=== PATIENT | female | born 1995 | race Caucasian/White ===

== ENCOUNTER 2022-11-18 11:17 | Emergency (ER) | payer BC, OTHER ==
--- OUTSIDE RECORDS SUMMARY | 2022-11-18 11:21 | XMS REPORT | Continuity of Care Document ---
:1995 Author Organization [facility] t Address [address] [place] [address] [place] [address] Care Team Providers Name Role Phone AGUSTIN KEE Attending Clinician Unavailable Agustin Kee MD Attending Clinician [phone] KAMI Attending Clinician Unavailable SEVEN CONTRERAS Attending Clinician Unavailable TAMMIE CHILD Attending Clinician Unavailable URSULA MEDINA Attending Clinician Unavailable RABIA CONNOLLY Attending Clinician Unavailable ANNMARIE PARDO Attending Clinician Unavailable KAMI Admitting Clinician Unavailable Payers Payer Name Policy Type Policy Number Effective Date Expiration Date S ilia [facility] OS [id number] 2022 00:00:00 POS/PPO/EPO Problems This patient has no known problems. Allergies, Adverse Reactions, Alerts Allergy Allergy Status Severity Reaction(s) Onset Inactive Treating Comm ents Source Name Type Date Date Clinician NO KNOWN Allergy Active KACY Sneed [facility] Social History Social Habit Start Date Stop Date Quantity Comments Source Tobacco use and 2022-10-27 2022-10-27 Smokeless [address] [facility] exposure 00:[facility]00 00:00:00 non-user [facility] Alcohol intake 2022-10-27 2022-10-27 Current drinker KACY Avendaño 00:00:00 00:00:00 of alcohol [facility] Center ([facility]) Alcohol Comment 2022-08-19 2022-08-19 1 per month KACY Cervantes 00:00:00 00:00:00 [facility] Center Sex Assigned At [address] [facility] [address] [facility] 00:00:00 00:[facility]:00 [facility] Smoking Status Start Date Stop Date Source Never smoked tobacco [facility] Medications Ordered Filled Start Stop Current Ordering Indication Dosage Frequency Signature Comments Components Source Medication Medication Date Date Medication? Clinician (SIG) Name Name norelgestro 2022- No Xulane [address] [facility] min-ethinyl 4-05 04-05 mcg-35 [facility] estradiol 12:22: 00:00 mcg/24 hr Me dical (Xulane) 49 :00 transderma Cente r 150-35 l patch mcg/24 hr Apply 1 patch patch every week by transderma l route. benzonatate Yes benzonatat [facility] (TESSALON) 4-05 e 200 mg [facility] 200 MG 11:41: capsule Medical capsule 35 Take 1 [place] capsule 3 times a day by oral route for 20 days. medroxyPROG 2022- No 10mg QD Take [address] [facility] ESTERone 30 02-09 tablet (10 [facility] s (PROVERA) 00:00: 23:59 mg total) Me dical 10 MG 00 :00 by mouth Center tablet daily for 10 days Take cycle day 18 to 27. escitalopra Yes Secondary Take by [facility] m oxalate 1-11 amenorrhea mouth. Dorota kes (LEXAPRO) 00:00: Medical 10 MG 00 Center tablet Rexulti 1 2022- No Secondary 1mg QD Take [address] mg Tab 08-03-05 amenorrhea by mouth Dorota kes tablet 00:00: 00:00 daily. Medical 00 :00 Center albuterol Yes Secondary 2{puff} [address] HFA 1-09 amenorrhea [facility] (VENTOLIN 00:00: Medical HFA) 90 00 [place] mcg/actuati on inhaler ALPRAZolam 2021-07 Yes Secondary Take by [facility] (XANAX) 0.5 1-16 amenorrhea mouth. [facility] MG tablet 00:00: Medical 00 Center Vital Signs Vital Name Observation Time Observation Value Comments Source HEIGHT 2022-10-27 11:39:00 167.6 cm WEIGHT 2022-10-27 11:39:00 74.844 kg HEIGHT 2022-10-27 11:39:00 167.6 cm WEIGHT 2022-10-27 11:39:00 74.844 kg Systolic blood 2022-10-27 11:39:00 121 mm[Hg] [facility] Diastolic blood 2022-10-27 11:39:00 81 mm[Hg] [facility] Heart rate 2022-10-27 11:39:00 88 /min [facility] Body temperature 2022-10-27 11:39:00 36.72 Karishma [facility] Body height 2022-10-27 11:39:00 167.6 cm [facility] Body weight 2022-10-27 11:39:00 74.844 kg [facility] BMI 2022-10-27 11:39:00 26.64 kg/m2 [facility] Procedures Procedure Date / Time Performed Performing Clinician Sourc e CBC W/PLT COUNT & AUTO 2022-08-19 12:12:[address] [facility] COMPREHENSIVE METABOLIC 2022-08-19 12:12:00 Agustin Kee [facility] TSH/FREE T4 IF INDICATED 2022-08-19 12:12:00 Agustin Kee [facility] PROLACTIN 2022-08-19 12:12:00 Agustin Kee [facility] HEMOGLOBIN A1C 2022-08-19 12:12:00 Agustin Kee [facility] FSH/LH 2022-08-19 12:12:00 Agustin Kee [facility] ANTI-MULLERIAN HORMONE 2022-08-19 12:12:00 Agustin Kee [facility] CERVICAL CANCER B 2022-08-19 12:04:00 Agustin Kee [facility] Raya carlos SCREENING ONLY- NO STD'S [facility] IGP, RFX APTIMA HPV ASCU 2022-08-19 12:04:00 Agustin Kee [facility] Plan of Care Planned Activity Planned Date Details Comments Source Future Scheduled 2023-10-[address] [facility] Test 00:00:00 Counseling and Medical Cente r Screening (12+) [code = Tobacco Cessation Counseling and Screening (12+)] Future Scheduled 2023-03-[address] [facility] Test 00:00:00 (Season Ended) [code Medical Center = INFLUENZA VACCINE (Season Ended)] Future Scheduled [address] [facility] [facility] Test 00:00:00 malignant neoplasm of Medica l Center cervix (procedure) [code = 298686432] Future Scheduled 2016 DTAP/TDAP/TD VACCINES [facility] Test 00:00:00 (1 - Tdap) [code = Medical C enter DTAP/TDAP/TD VACCINES (1 - Tdap)] Future Scheduled 2015 HEPATITIS C SCREENING [facility] Test 00:00:00 [code = HEPATITIS C Medical Center SCREENING] Future Scheduled 1997 COVID-19 VACCINE (#1) [facility] Test 00:00:00 [code = COVID-[address] VACCINE (#1)] Encounters Start End Encounter Admission Attending Care Care Encounter Source Date/Time Date/Time Type Type Clinicians Facility Department ID 2023-08-25 2023-08-25 Outpatient [facility] [id number] [facility] 00[facility]00 [facility] 2022-10-27 2022-10-[address] [facility] [id number] 11:30:00 12:26:34 Visit [facility] 2022-10-27 2022-10-27 Outpatient [facility] [id number] 11[facility]28:16 12:26:34 [facility] 2022-08-23 2022-08-[address] [facility] [id number] 00:[facility]00 00:00:00 Only [facility] 2022-08-23 2022-08-[address] [facility] [id number] 00:[facility] 00[facility]00 [facility] 2022-08-19 2022-08-19 Outpatient SHAYNA KEE [facility] [id number] 11:04:10 12:09:43 [facility] 2022-08-19 2022-08-[address] [facility] [id number] 11:00:00 12:09:43 Visit [facility] 2021-11-17 2021-11-17 Outpatient SWETHA KNOX [facility] [id number] [place] 06:16:00 06:16:00 [facility] [id number] [facility] 2019-01-05 2019-01-05 Outpatient SHAYNA CONTRERAS [facility] [id number] [place] 10:06:00 10:06:00 [id number] [facility] 2017-12-16 2017-12-16 Outpatient SHAYNA CONTRERAS [facility] [id number] [place] 10:14:00 10:14:00 [facility]VEN -[id number] [facility] 2017-11-03 2017-11-03 Emergency ER TAMMIE CHILD [facility] [id number] [place] 15:26:00 17:13:00 -[id number] [facility] hospital 2017-11-01 2017-11-01 Outpatient SHAYNA MEDINA [facility] [id number] [place] 08:40:00 08:40:00 URSULA -[id number] [facility] 2017-06-08 2017-06-08 Outpatient SHAYNA CONNOLLY [facility] [id number] [place] 17:03:00 17:03:00 RABIA -[id number] [facility] 2017-04-14 2017-04-14 Outpatient ANNMARIE TONY [facility] [id number] [place] 11:28:00 11:28:00 -[id number] [facility] hospital 2017-03-10 2017-03-10 Outpatient ANNMARIE TONY [facility] [id number] [place] 13:55:00 13:55:00 -[id number] [facility] Results Test Description Test Time Test Comments Results Result Comments Source Comprehensive metabolic panel 2022-08-26 12:11:00 Test Item Value Reference Range Interpretation Comme nts Glucose, Serum (test code 74 mg/dL 70-99 = 20101124) BUN (test code = 9408071) 11 mg/dL 6-20 Creatinine, Serum (test 0.53 mg/dL 0.57-1.00 L code = 7943501) EGFR (test code = 132 mL/min/1.73 >=59 [id number]) BUN/Creatinine Ratio (test 21 9-23 code = 8179749) Sodium, Serum (test code = 140 mmol/L 134-444 5373783) Potassium, Serum (test 4.0 mmol/L 3.5-5.2 code = 20101210) Chloride, Serum (test code 102 mmol/L 96-106 = 20101212) Carbon Dioxide, Total 23 mmol/L 20-29 (test code = ) Calcium, Serum (test code 9.7 mg/dL 8.7-10.2 = 20101122) Protein, Total, Serum 7.5 g/dL 6.0-8.5 (test code = 20101129) Albumin, Serum (test code 4.8 g/dL 3.9-5.0 = 20101130) Globulin, Total (test code 2.7 g/dL 1.5-4.5 = ) A/G Ratio (test code = 1.8 1.2-2.2 ) Bilirubin, Total (test 0.4 mg/dL 0.0-1.2 code = 20101201) Alkaline Phosphatase, S 54 See_Comment [Au tomated message] (test code = 6768-6) The sys tem which generated this result transmitted ref erence range: 44 - 121 IU/L. The reference r per was not used to int erpret this result as normal/abnormal . AST (SGOT) (test code = 36 See_Comment [Au tomated message] 20101205) The system [employer] generated this result transmitted ref erence range: 0 - 40 I U/L. The reference range was not used to interpr et this result as normal/abnormal . ALT (SGPT) (test code = 52 See_Comment H [Au tomated message] ) The system ic h generated this result transmitted ref erence range: 0 - 32 I U/L. The reference range was not used to interpr et this result as normal/abnormal . AXEL (test code = AXEL) Performed at: [facility] [id number] Director: Berlin Meng MD, Phone: [phone] Lab Interpretation (test Abnormal code = 61513-7) [facility] Center[facility] [id number] 12:11:00 Test Item Value Reference Range Interpretation Comments Hemoglobin A1c 5.2 % 4.8-5.6 Prediabetes: (test code = 5.7 - 6.4 4548-4) Diabetes: >6.4 Glycemic contro l for adults with diabetes: <7.0 AXEL (test code = Performed at: AXEL) [facility] [address] [id number] Director: Berlin Meng MD, Phone: [phone] [facility] W/ PLT COUNT AUTO [id number] 12:11:00 Test Item Value Reference Range Interpretation Comments WBC (test code = 7.2 See_Comment [Automated ) message] The system which generated this result transmit gurdeep reference range : 3.4 - 10.8 x10E3/uL. The reference range was not used to interpret this result as normal/abnormal . RBC (test code = 4.44 See_Comment [Automated 208-8) message] The system which generated this result transmit gurdeep reference range : 3.77 - 5.28 x10E6/uL. The reference range was not used to interpret this result as normal/abnormal . Hemoglobin (test 12.9 g/dL 11.1-15.9 code = ) Hematocrit (test 39.3 % 34.0-46.6 code = ) MCV (test code = 89 fL 79-97 ) MCH (test code = 29.1 pg 26.6-33.0 ) MCHC (test code = 32.8 g/dL 31.5-35.7 ) RDW (test code = 12.7 % 11.7-15.4 ) Platelets (test 274 See_Comment [Automated code = ) message] The system which generated this result transmit gurdeep reference range : 150 - 450 x10E3/uL. The reference range was not used to interpret this result as normal/abnormal . % Neutros (test 59 % Not Estab. code = ) % Lymphs (test 33 % Not Estab. code = ) % Monos (test code 5 % Not Estab. = ) % Eos (test code = 2 % Not Estab. ) % Baso (test code 1 % Not Estab. = ) # Neutros (test 4.3 See_Comment [Automated code = ) message] The system which generated this result transmit gurdeep reference range : 1.4 - 7.0 x10E3/uL. The reference range was not used to interpret this result as normal/abnormal . # Lymphs (test 2.4 See_Comment [Automated code = ) message] The system which generated this result transmit gurdeep reference range : 0.7 - 3.1 x10E3/uL. The reference range was not used to interpret this result as normal/abnormal . # Monos (test code 0.4 See_Comment [Automat ed = ) message] The system which generated this result transmit gurdeep reference range : 0.1 - 0.9 x10E3/uL. The reference range was not used to interpret this result as normal/abnormal . # Eos (test code = 0.1 See_Comment [Automat ed ) message] The system which generated this result transmit gurdeep reference range : 0.0 - 0.4 x10E3/uL. The reference range was not used to interpret this result as normal/abnormal . Baso (Absolute) 0.1 See_Comment [Automated (test code = message] The ) system which generated this result transmit gurdeep reference range : 0.0 - 0.2 x10E3/uL. The reference range was not used to interpret this result as normal/abnormal . % Immature Grans 0 % Not Estab. (test code = ) # Immature Grans 0.0 See_Comment [Automated (test code = message] The ) system which generated this result transmit gurdeep reference range : 0.0 - 0.1 x10E3/uL. The reference range was not used to interpret this result as normal/abnormal . AXEL (test code = Performed at: AXEL) [facility] [id number] Director: Berlin Meng MD, Phone: [phone] [facility] CenterProlactin2023-02-02 12:11:00 Test Item Value Reference Range Interpretation Comments Prolactin (test code = 18.0 ng/mL 4.8-23.3 ) AXEL (test code = AXEL) Performed at: - [facility] [address] [id number] Director: Berlin Meng MD, Phone: [phone] [facility] [id number] 12:11:00 Test Item Value Reference Range Interpretation Comments LH (test code 16.2 mIU/mL Adult Female: = ) Follicular phas e 2.4 - 12.6 Ovulation phase 14.0 - 95.6 Lut eal phase 1.0 - 11. 4 Postmenopausal 7.7 - 58.5 FSH (test 5.8 mIU/mL Adult Female: code = Follicular phas e 3.5 - 4626598) 12.5 Ovulation phase 4.7 - 21.5 Lute al phase 1.7 - 7.7 Postmenopausal 25.8 - 134.8 AXEL (test Performed at: - code = AXEL) [facility] [id number] Director: Berlin Meng MD, Phone: [phone] [facility] CenterTSH/Free T4 If [id number] 12:11:00 Test Item Value Reference Range Interpretation Comments TSH (test code 1.000 See_Comment [Automated m essage] = ) The system [employer] h generated this result transmit gurdeep reference range : 0.450 - 4.50 uI U/mL. The reference r per was not used to interpret this result as normal/abnormal . AXEL (test code Performed at: - = AXEL) [facility] [id number] Director: Berlin Meng MD, Phone: [phone] [facility] CenterANTI-MULLERIAN HORMONE (AMH)2022-08-26 12:11:00 Test Item Value Reference Interpretation Comments Range Anti-Mullerian 20.1 ng/mL H For assays em ploying Hormone (AMH) antibodies, th e possibility (test code = exists forinter ference by ) heterophile ant ibodies in the samples.1 1 .Carina Driver Interferences i n Immunoassays - still a threat. Clin. C hem. 2000; 46: 4006-8410. This test was developed and i ts performance characteristics determined by [facility]. It has not been cleared or appr ovedby the Food and Drug Administration. Reference Range:Females 2 0 - 25y: 1.23 - 11.51Median 4 .70AMH concentrations of >= 1.06 ng/mL is correl ated with abetter respons e to ovarian stimulation, pr oduced moreretrievable oocytes and higher odds of live accordingto Ruiz le al. Fertility and S terility. 2010:94:2824-28 27. The current AMH roman t method correlates with the study method with a s donnell of 0.94.Females at risk of ovarian hyperst imulation syndrome orpoly cystic ovarian syndrom e (PCOS) may exhibit elevate dserum AMH concentrations. AMH levels from PCOS patie ntsmay be 2 to 5 fold highe r than age-appropriate referenceinterv al values.Granulos a cell tumors of the ovary ma y secrete AMH alongwith other tumor markers. Elevat ed AMH is not specific formal ignancy, and the assay shoul d not be used exclusively tod iagnose or exclude an AMH- secreting ovarian tumor. AXEL (test code = Performed at: AXEL) 02 - [facility] [address] [place], [place] [id number] Director: Yaya More MD, Phone: [phone] Lab Abnormal Interpretation (test code = 10535-1) [facility] CenterCERV[facility] CANCER B SCREENING ONLY- NO [id number] 12:09:00 Test Item Value Reference Range Interpretation Comments Age Gdln ACOG 21-29 Testing (test code = 1803725) AXEL (test code = Specimen Comment: No. of AXEL) containers..01 ThinPrep VialPerformed at: 01 - [facility] [address] [id number] Director: Berlin Meng MD, Phone: [phone] [facility] CenterIGP, rfx Aptima HPV [id number] 12:09:00 Test Item Value Reference Interpretation Comments Range DIAGNOSIS: Comment NEGATIVE FOR (test code = INTRAEPITHELIAL LESION ) OR MALIGNANCY. Specimen Comment Satisfactory fo r adequacy: (test evaluation. code = ) Performed by: Comment Arianne Gonzales Has hmi, (test code = Cytotechnologis t ) (ASCP) . (test code = . 20111124) Note: (test Comment The Pap smear i s a code = ) screening te st designed to aid in the detection ofpremalignant and malignant condi tions of the uterine cervix. It is not adiag nostic procedure and s hould not be used as the sole means of detectingcervic al cancer. Both false-positive and false-negative reports do occur. Test Comment This liquid bas ed Methodology: ThinPrep(R) pap test (test code = was screened wi ) theuse of an im age guided system. . (test code = Comment The HPV DNA r eflex ) criteria were n ot met with this speci men resulttherefore , no HPV testing was performed. AXEL (test code Specimen Comment: = AXEL) No. of containers..01 ThinPrep VialPerformed at: - [facility] [address] [id number] Director: Berlin Meng MD, Phone: [phone] at: - [facility] [id number] Director: Berlin Meng MD, Phone: [phone] [facility]
[2022-11-18 12:26] LABS: Absolute Lymphocytes (CBC) 2.4 K/uL (0.7-4.9); Hematocrit 38.7 % (36.0-45.0); MCV 85.6 fL (80-100); MPV 7.7 fL (7.6-11.3); RBC Red Blood Cell Count 4.53 M/uL (3.86-4.86)
[2022-11-18] MEDS ORDERED: ONDANSETRON 4 MG/2 ML VIAL ONE (12:27)
[2022-11-18] MEDS ORDERED: Ringers Lactate 1,000 ML IV ONE (12:27)
[2022-11-18] MEDS ORDERED: MECLIZINE HCL 12.5 MG TAB ONE (12:27)
[2022-11-18 12:30] LABS: Protime INR 0.87
[2022-11-18 12:51] LABS: Barbiturates NEGATIVE (NEGATIVE); Benzodiazepines NEGATIVE (NEGATIVE); Cocaine NEGATIVE (NEGATIVE); METHAMPHETAM NEGATIVE (NEGATIVE); Methadone NEGATIVE (NEGATIVE); Opiates NEGATIVE (NEGATIVE); Phencyclidine NEGATIVE (NEGATIVE); THC Cannibis POSITIVE (NEGATIVE)
[2022-11-18 12:54] LABS: ALT/SGPT 26 U/L (13-56); AST/SGOT 14 U/L (15-37); Albumin 4.1 g/dL (3.4-5.0); Alkaline Phosphatase 59 U/L (45-117); BUN Blood Urea Nitrogen 9 mg/dL (7-18); Bicarbonate 28 mEq/L (21-32); Bilirubin Total 0.2 mg/dL (0.2-1.0); Glomerular Filtration Rate 126 ml/min (=/>90); Glucose Level 90 mg/dL (74-106); Potassium 3.6 mEq/L (3.5-5.1); Sodium Level 137 mEq/L (136-145)
[2022-11-18 13:00] LABS: Bilirubin Direct < 0.1 mg/dL (0-0.2); Troponin High Sensitivity < 3.0 pg/mL (<58.9)
--- NOTE | 2022-11-18 13:12 | RAD REPORT ---
EXAM DESCRIPTION: CT - Head Brain Wo Cont - 11/18/2022 12:45 pm CLINICAL HISTORY: DIZZINESS COMPARISON: No comparisons TECHNIQUE: Noncontrast head CT images ad were obtained without IV contrast. Multiplanar reformats we re generated and reviewed. All CT scans are performed using dose optimization technique as appropriate and may include automated exposure control or mA/KV adjustment according to patient size. FINDINGS: No intracranial hemorrhage, mass, or edema. Midline structures are unremarkable. Normal ventricular caliber for age. Washburn-white matter differentiation is preserved, without evidence of acute infarct. No abnormal extra- axial fluid collections. Mastoid air cells and visualized portions of the paranasal sinuses are clear. No acute bony findings. IMPRESSION: No evidence of an acute intracranial process.
[2022-11-18] MEDS ORDERED: DIAZEPAM 10 MG/2 ML INJ SYRINGE ONE (14:14)
--- NOTE | 2022-11-18 15:30 | EDPHYS ---
Physician Documentation [facility] Name: Makeda Solis Age: 27 yrs Sex: Female : 1995 Arrival Date: 11/18/2022 Time: 11:17 Bed 11 Private MD: ED Physician Herbie Flores HPI: 11/18 11:21 This 27 yrs old Unknown Female presents to ER via Ambulatory with complaints of m Dizziness. 11:21 The patient presents with dizziness. Onset: The symptoms/episode began/occurred jmm acutely, 3 day(s) ago. Modifying factors: The symptoms are alleviated by closing eyes, holding head still, the symptoms are aggravated by movement of head, standing up, changing position. Associated signs and symptoms: Pertinent positives: vomiting. The patient has not experienced similar symptoms in the past. Historical: - Allergies: 11:24 No Known Allergies; ll1 - PMHx: 11:24 Anxiety; ll1 - PSHx: 11:24 wisdom teeth; ll1 - Immunization history:: Adult Immunizations up to date. - Social history:: Smoking status: Patient denies any tobacco usage or history of. ROS: 11:21 Constitutional: Negative for fever, chills, and weight loss, Cardiovascular: Negative jm for chest pain, palpitations, and edema, Respiratory: Negative for shortness of breath, cough, wheezing, and pleuritic chest pain. 11:21 Abdomen/GI: Positive for nausea and vomiting. 11:21 Neuro: Positive for dizziness. 11:21 All other systems are negative. Exam: 11:58 ECG was reviewed by the Attending Physician. jm 17:12 Constitutional: This is a well developed, well nourished patient who is awake, alert, jmm and in no acute distress. Head/Face: atraumatic. ENT: Moist Mucus Membranes Neck: Trachea midline, Supple Chest/axilla: Normal chest wall appearance and motion. Cardiovascular: Regular rate and rhythm. No edema appreciated Respiratory: Normal respirations, no respiratory distress appreciated 17:12 Back: Normal ROM Skin: General appearance color normal MS/ Extremity: Moves all jmm extremities, no obvious deformities appreciated, no edema noted to the lower extremities Neuro: Awake and alert Psych: Behavior is normal, Mood is normal, Patient is cooperative and pleasant 17:12 Eyes: Nystagmus: nystagmus with fast component noted, Horizontal nystagmus noted bilaterally. Vital Signs: 11:23 BP 123 / 89; Pulse 64; Resp 16; Temp 98.2; Pulse Ox 100% ; Weight 72.57 kg; Height 5 ll1 ft. 5 in. ; Pain 6/10; 12:15 BP 116 / 71; Pulse 82; Resp 16; Pulse Ox 100% on R/A; db 14:17 BP 110 / 73; Pulse 66; Resp 18; Pulse Ox 100% on R/A; db 11:23 Body Mass Index 26.63 (72.57 kg, 165.1 cm) ll1 11:23 Pain Scale: Adult ll1 MDM: 11:34 Patient medically screened. [facility] 17:12 Differential diagnosis: cardiac arrhythmia, CVA, idiopathic dizziness, near-syncope, jmm sepsis, syncope, TIA, vertigo. Data reviewed: vital signs, nurses notes, lab test result(s). I considered the following discharge prescriptions or medication management in the emergency department Medications were administered in the Emergency Department. See MAR. Test considered but Not performed: MRI: HPI and CT negative. Most likely peripheral vertigo.. Counseling: I had a detailed discussion with the patient and/or guardian regarding: the historical points, exam findings, and any diagnostic results supporting the discharge/admit diagnosis, lab results, radiology results, the need for outpatient follow up, to return to the emergency department if symptoms worsen or persist or if there are any questions or concerns that arise at home. ED course: Patient states feeling much better. Patient advised to follow-up with ENT for reevaluation otherwise given strict return precautions. Patient understood and agrees plan of care.. 11/18 11:34 Order name: Acetaminophen; Complete Time: 13:02 [facility] 11/18 11:34 Order name: Basic Metabolic Panel; Complete Time: 13:02 [facility] 11/18 11:34 Order name: CBC with Diff; Complete Time: 12:29 [facility] 11/18 11:34 Order name: ETOH Level; Complete Time: 12:40 [facility] 11/18 11:34 Order name: Hepatic Function; Complete Time: 13:02 [facility] 11/18 11:34 Order name: PT-INR; Complete Time: 12:33 [facility] 11/18 11:34 Order name: Ptt, Activated; Complete Time: 12:33 [facility] 11/18 11:34 Order name: Salicylate; Complete Time: 13:02 [facility] 11/18 11:34 Order name: Urine Drug Screen; Complete Time: 12:51 [facility] 11/18 11:34 Order name: Troponin High Sensitivity; Complete Time: 13:02 [facility] 11/18 12:37 Order name: CT Head Brain wo Cont; Complete Time: 13:19 [facility] 11/18 11:34 Order name: EKG; Complete Time: 11:35 [facility] 11/18 11:34 Order name: EKG - Nurse/Tech; Complete Time: 12:00 [facility] 11/18 11:34 Order name: IV Saline Lock; Complete Time: 12:15 [facility] 11/18 11:34 Order name: Labs collected and sent; Complete Time: 12:15 jm EC:58 Rate is 67 beats/min. Rhythm is regular. QRS [place] is Normal. [place] interval is normal. QRS jmm interval is normal. QT interval is normal. No Q waves. T waves are Normal. No ST changes noted. Reviewed by me. Administered Medications: 12:15 Drug: Meclizine PO 50 mg Route: PO; db 12:20 Drug: Lactated Ringers Solution IV 1000 ml Route: IV; Rate: 1000 bolus; Site: right db antecubital; 15:39 Follow up: IV Status: Completed infusion; IV Intake: 1000ml db 12:30 Drug: Ondansetron IVP 4 mg Route: IVP; Site: right antecubital; db 15:39 Follow up: Response: No adverse reaction db 14:14 Drug: Diazepam IVP 5 mg Route: IVP; Site: right antecubital; db 15:39 Follow up: Response: No adverse reaction db Disposition: 12:23 Co-signature as Attending Physician, Herbie Flores DO PA/SLITTING MACHINE OPERATOR's history reviewed, patient ms3 interviewed, and examined. HPI: 27-year-old female presents for 3 days of dizziness. Patient states she was off her anxiety medicines and recently restarted them. My personal exam of patient reveals: On exam patient is alert and oriented x4, no apparent distress, nontoxic-appearing. Heart rate and rhythm are regular without murmurs rubs or gallops. Lungs are clear to auscultation bilaterally. Abdomen is nontender to palpation with bowel sounds present. Skin is dry and without rashes. [id number] intact, ambulatory in the emergency department, sensation intact, full range of motion bilateral upper and lower extremities. I agree with assessment and care plan and confirm the diagnosis (es) above. Disposition Summary: 11/18/22 15:30 Discharge Ordered Location: Home [facility] Condition: Stable [facility] Diagnosis - Other peripheral vertigo [facility] Followup: [facility] - With: Dinah Dasilva MD - When: 2 - 3 days - Reason: Recheck today's complaints, Continuance of care, Re-evaluation by your physician Discharge Instructions: - Discharge Summary Sheet [facility] - Vertigo [facility] - How to Perform the Alcides Maneuver [facility] Forms: - Medication Reconciliation Form [facility] - Thank You Letter [facility] - Antibiotic Education [facility] - Prescription Opioid Use [facility] Prescriptions: - ondansetron 4 mg Oral Tablet,disintegrating - take 1 tablet by ORAL route every 4-6 hours As needed; 20 tablet; Refills: 0, [facility] Product Selection Permitted - Meclizine 25 mg Oral Tablet - take 1 tablet by ORAL route every 8 hours As needed; 30 tablet; Refills: 0, [facility] Product Selection Permitted - Valium 5 mg Oral Tablet - take 1 tablet by ORAL route every 8 hours As needed; 20 tablet; Refills: 0, [facility] Product Selection Permitted Signatures: Dispatcher [employer] EDChuck Barraza PA PA jmm Lewis, Lynsay, RN RN ll1 Herbie Flores DO DO ms3 Marivel Kim RN RN db Corrections: (The following items were deleted from the chart) 11:49 11:34 Suicide Screening ([place]) ordered. [facility]
--- NOTE | 2022-11-18 15:30 | ER ---
Nurse's Notes [facility] Name: Makeda Solis Age: 27 yrs Sex: Female : 1995 Arrival Date: 11/18/2022 Time: 11:17 Bed 11 Private MD: Diagnosis: Other peripheral vertigo Presentation: 11/18 11:23 Chief complaint: Patient states: THORNTON, N/V, THORNTON for 2-3 days. Missed her cymbalta dose 3 ll1 days in a row, feels anxious. Coronavirus screen: Vaccine status: Patient reports receiving the 2nd dose of the covid vaccine. Client denies travel out of the [place] in the last 14 days. At this time, the client does not indicate any symptoms associated with coronavirus-19. Ebola Screen: Patient denies travel to an Ebola-affected area in the 21 days before illness onset. Initial Sepsis Screen: Does the patient meet any 2 criteria? No. Patient's initial sepsis screen is negative. Does the patient have a suspected source of infection? No. Patient's initial sepsis screen is negative. Risk Assessment: Do you want to hurt yourself or someone else? Patient reports no desire to harm self or others. Onset of symptoms was November 16, 2022. 11:23 Method Of Arrival: Ambulatory ll1 11:23 Acuity: LEONCIO 3 ll1 Triage Assessment: 11:26 General: Appears uncomfortable, Behavior is calm, cooperative, appropriate for age. ll1 Pain: Denies pain. Neuro: Reports dizziness, headache. GI: Reports nausea, vomiting. Historical: - Allergies: 11:24 No Known Allergies; ll1 - PMHx: 11:24 Anxiety; ll1 - PSHx: 11:24 wisdom teeth; ll1 - Immunization history:: Adult Immunizations up to date. - Social history:: Smoking status: Patient denies any tobacco usage or history of. Screenin:39 [facility] ED Fall Risk Assessment (Adult) History of falling in the last 3 months, db including since admission No falls in past 3 months (0 pts) Confusion or Disorientation No (0 pts) Intoxicated or Sedated No (0 pts) Impaired Gait No (0 pts) Mobility Assist Device Used No (0 pt) Altered Elimination No (0 pt) Score/Fall Risk Level 0 - 2 = Low Risk Oriented to surroundings, Maintained a safe environment. Abuse screen: Denies threats or abuse. Denies injuries from another. Nutritional screening: No deficits noted. Tuberculosis screening: No symptoms or risk factors identified. Assessment: 12:30 Reassessment: Patient appears in no apparent distress at this time. Patient and/or db family updated on plan of care and expected duration. Pain level reassessed. Patient is alert, oriented x 3, equal unlabored respirations, skin warm/dry/pink. 12:39 Reassessment: Patient appears in no apparent distress at this time. Patient and/or db family updated on plan of care and expected duration. Pain level reassessed. Patient is alert, oriented x 3, equal unlabored respirations, skin warm/dry/pink. patient reports vomiting in room. Denies vomiting meclizine. Notified Chuck Dinh, provider. 14:00 Reassessment: Patient appears in no apparent distress at this time. Patient and/or db family updated on plan of care and expected duration. Pain level reassessed. Patient is alert, oriented x 3, equal unlabored respirations, skin warm/dry/pink. General: Appears in no apparent distress. comfortable, Behavior is calm, cooperative. Pain: Denies pain. Neuro: Level of Consciousness is awake, alert, obeys commands, Reports dizziness. 15:40 Reassessment: Patient appears in no apparent distress at this time. Patient and/or db family updated on plan of care and expected duration. Pain level reassessed. Patient is alert, oriented x 3, equal unlabored respirations, skin warm/dry/pink. Vital Signs: 11:23 BP 123 / 89; Pulse 64; Resp 16; Temp 98.2; Pulse Ox 100% ; Weight 72.57 kg; Height 5 ll1 ft. 5 in. ; Pain 6/10; 12:15 BP 116 / 71; Pulse 82; Resp 16; Pulse Ox 100% on R/A; db 14:17 BP 110 / 73; Pulse 66; Resp 18; Pulse Ox 100% on R/A; db 11:23 Body Mass Index 26.63 (72.57 kg, 165.1 cm) ll1 11:23 Pain Scale: Adult ll1 ED Course: 11:19 Patient arrived in ED. rg4 11:20 Arm band placed on. ll1 11:21 Herbie Flores DO is Attending Physician. ms3 11:24 Triage completed. ll1 11:33 Chuck Dinh PA is PHCP. anita 11:48 Marivel Kim, RN is Primary Nurse. db 12:14 Inserted saline lock: 20 gauge in right antecubital area, using aseptic technique. ks8 12:46 CT Head Brain wo Cont In Process Unspecified. EDMS 13:00 Warm blanket given. db 15:29 Dinah Dasilva MD is Referral Physician. jmm 15:40 Patient has correct armband on for positive identification. Bed in low position. Call db light in reach. Side rails up X 1. Pulse ox on. NIBP on. 15:41 No provider procedures requiring assistance completed. IV discontinued, intact, db bleeding controlled, No redness/swelling at site. Administered Medications: 12:15 Drug: Meclizine PO 50 mg Route: PO; db 12:20 Drug: Lactated Ringers Solution IV 1000 ml Route: IV; Rate: 1000 bolus; Site: right db antecubital; 15:39 Follow up: IV Status: Completed infusion; IV Intake: 1000ml db 12:30 Drug: Ondansetron IVP 4 mg Route: IVP; Site: right antecubital; db 15:39 Follow up: Response: No adverse reaction db 14:14 Drug: Diazepam IVP 5 mg Route: IVP; Site: right antecubital; db 15:39 Follow up: Response: No adverse reaction db Medication: 15:41 VIS not applicable for this client. db Intake: 15:39 IV: 1000ml; Total: 1000ml. db Outcome: 15:30 Discharge ordered by . [facility] 15:41 Discharged to home ambulatory. db 15:41 Condition: stable 15:41 Discharge instructions given to patient, Instructed on discharge instructions, follow up and referral plans. Demonstrated understanding of instructions, Prescriptions given X 3. 15:42 Patient left the ED. db Signatures: Dispatcher [employer] EDMS Chuck Dinh PA PA jmm Garcia, Rubi rg4 Sonali Duong, RN RN ll1 Herbie Flores DO DO ms3 Marivel Kim, RN RN db Maria T Flores ks8
[2022-11-18 16:00] VITALS: TEMP 98.2; O2SAT 100
[2022-11-18 16:09] VITALS: BP 110/73
--- NOTE | 2022-11-19 07:02 | EKG ---
Test Date: 2022-11-18 Test Time: 11:56:23 Title I Director: NANETTE MEASUREMENT RESULTS: Intervals: Rate: 67 MN: 176 QRSD: 82 QT: 386 QTc: 407 [place]: P: 72 MN: 176 QRS: 71 T: 72 INTERPRETIVE STATEMENTS: Normal sinus rhythm Normal ECG No previous ECG available for comparison Electronically Signed On 11-19-22 06:59:56 CDT by Simon Escalera
== END 2022-11-18 15:42 | disposition home or self-care (01) ==
LOC: ER 11:17
DX: H81.399 Other peripheral vertigo, unspecified ear (principal)
CPT/HCPCS: 93005; 85025; 80048; 36415; 85610; 80076; 85730; 84484; 80307; 70450; J8597; J3360; J2405; J7120; G0480 ×3